=== PATIENT | male | born 2000 | race Caucasian/White ===

== ENCOUNTER 2018-05-02 23:15 | Emergency (ER) | payer BC ==
[2018-05-02] MEDS: Ondansetron 4 MG/2 ML SDV IV ONE (23:29)
[2018-05-02] MEDS: Sodium Chloride 0.9% 1,000 ML IV ONE (23:29)
[2018-05-02] MEDS: Morphine 2 MG/ML Syringe IVPUSH ONE (23:31)
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
[2018-05-02] MEDS ORDERED: Silver Sulfadiazine 1% Crm 50 GM Tube TOP ONE (23:41)
[2018-05-02] MEDS: HYDROmorphone 0.5 MG/0.5 ML Syringe IVPUSH ONE (23:50)
[2018-05-02 23:59] LABS: ANION GAP 11.2; CHLORIDE,CL 102 mmol/L (101-111); SODIUM,NA 139 mmol/L (135-145)
[2018-05-03] MEDS: Midazolam 1 MG/ML 2 ML SDV IVPUSH ONE (00:14)
[2018-05-03] MEDS ORDERED: Sodium Chloride 0.9% 1,000 ML IV ONE (00:51)
== END 2018-05-03 02:04 | disposition home or self-care (01) ==
LOC: DL.ED 23:15
DX: T24.211A Burn of second degree of right thigh, initial encounter (principal); T24.111A Burn of first degree of right thigh, initial encounter; Z88.1 Allergy status to other antibiotic agents; W40.8XXA Explosion of other specified explosive materials, initial encounter
CPT/HCPCS: 16020; 36415; 80053; 85025; 96365; 96375; 99284; A9270; J1170; J2250; J2270; J2405; J7030